=== PATIENT | male | born 1995 | race African-American/Black ===

== ENCOUNTER 2020-07-21 11:29 | Emergency (ER) | payer OTHER ==
[~2020-07-21] VITALS: Ht 177.8 cm; Wt 54.4 kg
[~2020-07-21 11:29] MED LIST: NASAL SPRAY30 ML NS; NOHOMEMEDICATIONS; NORCO 5-325 TA1 EACH PO; TOBRADEX ST EYE5 ML OP
[2020-07-21] MEDS ORDERED: MOBIC7.5 MG PO (12:40)
[2020-07-21 14:18] VITALS: BP 121/73
== END 2020-07-21 14:21 | disposition home or self-care (01) ==
LOC: ER 11:29
DX: M25.512 Pain in left shoulder (principal); R07.81 Pleurodynia; Z79.899 Other long term (current) drug therapy; V89.2XXA Person injured in unspecified motor-vehicle accident, traffic, initial encounter; Y93.89 Activity, other specified; Y92.488 Other paved roadways as the place of occurrence of the external cause; Y99.8 Other external cause status

== ENCOUNTER 2020-08-01 20:16 | Emergency (ER) | payer OTHER ==
[~2020-08-01] VITALS: Ht 180.3 cm; Wt 49.9 kg
[~2020-08-01 20:16] MED LIST changes: +MOBIC7.5 MG PO
[2020-08-01] MEDS ORDERED: MELOXICAM7.5 MG PO (20:57)
[2020-08-01] MEDS ORDERED: LIDOCARE1 EACH TRANSDERM (21:44)
[2020-08-01 22:30] VITALS: BP 115/68
--- NOTE | 2020-08-03 08:18 | EKG ---
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 : 1995 Requested By: Payal Martell Order Number: [id number] MD: Kyrie Salgado Measurements Intervals [place] Rate: 81 P: 35 OK: 182 QRS: 56 QRSD: 81 T: 52 QT: 350 QTc: 407 Interpretive Statements Sinus rhythm Probable left atrial enlargement J Point elev, probable normal early repol pattern No previous ECG available for comparison Electronically Signed On 08-03-2020 8:18:38 CDT by Kyrie Salgado [email or web address] <ELECTRONICALLY SIGNED> By: Kyrie Salgado MD, [facility] 08/03/20 0818 53 53 Kyrie Salgado MD, FACC /EPI
== END 2020-08-01 22:29 | disposition home or self-care (01) ==
LOC: ER 20:16
DX: R07.89 Other chest pain (principal); M25.512 Pain in left shoulder; Z79.899 Other long term (current) drug therapy; V49.88XA Car occupant (driver) (passenger) injured in other specified transport accidents, initial encounter; Y93.89 Activity, other specified; Y92.413 State road as the place of occurrence of the external cause; Y99.9 Unspecified external cause status